=== PATIENT | female | born 1990 | race African-American/Black ===

== ENCOUNTER → 2019-12-19 | Outpatient (CLI) | payer OTHER | LOC: COL.RAD 09:45 | DX: N94.6 Dysmenorrhea, unspecified (principal); N92.0 Excessive and frequent menstruation with regular cycle; Z80.49 Family history of malignant neoplasm of other genital organs ==

== ENCOUNTER → 2020-04-01 | Outpatient (CLI) | payer OTHER ==
--- NOTE | 2020-04-01 09:30 | NUR ---
PT HAD NO FURTHER PROBLEMS WITH HIVES OR ITICHING. PT WAS GIVEN THE DRUG NAME, GADOLINIUM, AND THIS WAS ADDED TO HER ALLERGIES. PT WAS INSTRUCTED TO GIVE THIS INFORMATION TO HER PCP. PT WAS TAKEN TO [facility] AND LEFT FOR HOME.
== END ==
LOC: COL.RAD 06:49
DX: R41.82 Altered mental status, unspecified (principal); R51.9 Headache, unspecified
CPT/HCPCS: A9585

== ENCOUNTER → 2020-06-14 | Outpatient (CLI) | payer OTHER | LOC: COL.RAD 12:30 | DX: G44.51 Hemicrania continua (principal) ==